=== PATIENT | female | born 1985 | race Caucasian/White ===

== ENCOUNTER 2016-12-21 05:15 | Inpatient (IN) | payer BC ==
[2016-12-21] MEDS ORDERED: Sodium Chloride 0.9% 2.5 ML Syringe FLUSH PRN (05:24)
[2016-12-21] MEDS ORDERED: Sodium Chloride 0.9% 10 ML Syringe FLUSH PRN (05:24)
[2016-12-21] MEDS ORDERED: Lactated Ringers 1,000 ML IV SCH ×2 (05:30→09:30)
[2016-12-21] MEDS ORDERED: Citric Acid/Sodium Citrate Solution 30 ML Cup PO SCH (05:30)
[2016-12-21] MEDS ORDERED: Morphine PF 10 MG/10 ML SDV ONE (07:22)
[2016-12-21] MEDS ORDERED: Phenylephrine 1% 10 MG/ML SDV ONE (07:22)
[2016-12-21] MEDS ORDERED: Ondansetron 4 MG/2 ML SDV ONE (07:22)
--- NOTE | 2016-12-21 07:44 | PCM.PREANE ---
Preanesthetic Assessment - Anesthesia/Transfusion/Family Hx Anesthesia History: Prior Anesthesia Without Reaction (prior with epidural) Family History of Anesthesia Reaction: No Transfusion History: No Prior Transfusion(s) - Review of Systems General: No Symptoms Pulmonary: No Symptoms Cardiovascular: No Symptoms Gastrointestinal: No symptoms Neurological: No Symptoms Other: Reports: None (G4, P2, expecting identical twin boys, 36 week gest. PMH neg, NKDA) - Physical Assessment Height: 1.65 m Weight: 107.501 kg ASA Class: 2 Mental Status: Alert & Oriented x3 Airway Class: Mallampati = 2 Dentition: Reports: Normal Dentition ROM/Head Extension: Full Lungs: Clear to auscultation, Normal respiratory effort Cardiovascular: Regular Rate, Regular Rhythm - Lab Values: Laboratory Last Values WBC 7.74 K/uL (4.0-11.0) 12/21/16 05:38 RBC 4.25 M/uL (4.30-5.90) L 12/21/16 05:38 Hgb 12.3 g/dL (12.0-16.0) 12/21/16 05:38 Hct 36.9 % (36.0-46.0) 12/21/16 05:38 MCV 86.8 fL (80.0-98.0) 12/21/16 05:38 MCH 28.9 pg (27.0-32.0) 12/21/16 05:38 MCHC 33.3 g/dL (31.0-37.0) 12/21/16 05:38 RDW Std Deviation 42.1 fl (28.0-62.0) 12/21/16 05:38 RDW Coeff of Brandie 13 % (11.0-15.0) 12/21/16 05:38 Plt Count 145 K/uL (150-400) L 12/21/16 05:38 MPV 12.30 fL (7.40-12.00) H 12/21/16 05:38 Nucleated RBC % 0.0 /100WBC 12/21/16 05:38 Nucleated RBCs # 0 K/uL 12/21/16 05:38 Blood Type O POSITIVE 12/21/16 05:38 Antibody Screen NEGATIVE 12/21/16 05:38 - Allergies Allergies/Adverse Reactions: Allergies Allergy/AdvReac Type Severity Reaction Status Date / Time bee stings Allergy Rash Uncoded 12/19/16 08:54 - Blood Blood Available: Yes Product(s) Available: PRBC - Anesthesia Plan Pre-Op Medication Ordered: Antacids - Acknowledgements Anesthesia Type Planned: Spinal Pt an Appropriate Candidate for the Planned Anesthesia: Yes Alternatives and Risks of Anesthesia Discussed w Pt/Guardian: Yes Pt/Guardian Understands and Agrees with Anesthesia Plan: Yes PreAnesthesia Questionnaire HEENT History: Reports: None Cardiovascular History: Reports: None Respiratory History: Reports: None Gastrointestinal History: Reports: None Genitourinary History: Reports: None SLP History: Reports: Ectopic , Polycystic Ovaries, Musculoskeletal History: Reports: None Neurological History: Reports: None Psychiatric History: Reports: None Endocrine/Metabolic History: Reports: None Hematologic History: Reports: None Immunologic History: Reports: None Oncologic (Cancer) History: Reports: None Dermatologic History: Reports: None - Infectious Disease History Infectious Disease History: Reports: None - Past Surgical History Head Surgeries/Procedures: Reports: None HEENT Surgical History: Reports: Adenoidectomy Respiratory Surgical History: Reports: None GI Surgical History: Reports: None Female Surgical History: Reports: Breast reconstruction, Breast reduction, section, Cystectomy Other Female Surgeries/Procedures: hx breast reduction, 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 followed by breast reconstruction, laparoscopy for ovarian cystectomy, laparoscopy with salpingectomy for ectopic , - SUBSTANCE USE Smoking Status *Q: Former Smoker Second Hand Smoke Exposure: No Days Per Week of Alcohol Use: 0 Recreational Drug Use History: No - HOME MEDS Home Medications: Home Meds Vit W-Ca,Fe,FA(<1 mg) [ Vitamins] 1 tab PO DAILY 12/19/16 [ History] - CURRENT (IN HOUSE) MEDS Current Meds: Current Medications Citric Acid/Sodium Citrate (Bicitra Solution) 30 ml PO .ONCE PARUL Last Admin: 12/21/16 06:56 Dose: 30 ml Lactated Ringer's (Ringers, Lactated) 1,000 mls @ 500 mls/hr IV .BOLUS PARUL Last Admin: 12/21/16 05:41 Dose: 500 mls/hr Sodium Chloride (Saline Flush) 10 ml FLUSH ASDIRECTED PRN PRN Reason: Keep Vein Open Sodium Chloride (Saline Flush) 2.5 ml FLUSH ASDIRECTED PRN PRN Reason: Keep Vein Open Discontinued Medications Morphine Sulfate (Duramorph Pf) Confirm Administered Dose 10 mg .ROUTE .STK-MED ONE Stop: 12/21/16 07:23 Ondansetron HCl (Zofran) Confirm Administered Dose 4 mg .ROUTE .STK-MED ONE Stop: 12/21/16 07:23 Phenylephrine HCl (Felipe-Synephrine) Confirm Administered Dose 10 mg .ROUTE .STK- MED ONE Stop: 12/21/16 07:23 Preanesthetic Assessment - ANESTHESIA/TRANSFUSION/FAMILY HX Anesthesia/Transfusion History: No Prior Transfusion(s), Prior Anesthesia Family History of Anesthesia Reaction: No - PHYSICAL ASSESSMENT Height: 1.65 m Weight: 107.501 kg - LAB Values: Laboratory Last Values WBC 7.74 K/uL (4.0-11.0) 12/21/16 05:38 RBC 4.25 M/uL (4.30-5.90) L 12/21/16 05:38 Hgb 12.3 g/dL (12.0-16.0) 12/21/16 05:38 Hct 36.9 % (36.0-46.0) 12/21/16 05:38 MCV 86.8 fL (80.0-98.0) 12/21/16 05:38 MCH 28.9 pg (27.0-32.0) 12/21/16 05:38 MCHC 33.3 g/dL (31.0-37.0) 12/21/16 05:38 RDW Std Deviation 42.1 fl (28.0-62.0) 12/21/16 05:38 RDW Coeff of Brandie 13 % (11.0-15.0) 12/21/16 05:38 Plt Count 145 K/uL (150-400) L 12/21/16 05:38 MPV 12.30 fL (7.40-12.00) H 12/21/16 05:38 Nucleated RBC % 0.0 /100WBC 12/21/16 05:38 Nucleated RBCs # 0 K/uL 12/21/16 05:38 Blood Type O POSITIVE 12/21/16 05:38 Antibody Screen NEGATIVE 12/21/16 05:38 - ALLERGIES Allergies/Adverse Reactions: Allergies Allergy/AdvReac Type Severity Reaction Status Date / Time bee stings Allergy Rash Uncoded 12/19/16 08:54
[2016-12-21] MEDS ORDERED: ceFAZolin 2 GM in Premix Bag 1 BAG IV ONE (07:45)
[2016-12-21] MEDS ORDERED: Oxytocin 10 Units/1 ML SDV ONE (07:52)
[2016-12-21] MEDS ORDERED: Nalbuphine 10 MG/1 ML Vial IVPUSH PRN (08:37)
[2016-12-21] MEDS ORDERED: Naloxone 0.4 MG/ML Syringe IVPUSH PRN (08:37)
[2016-12-21] MEDS ORDERED: fentaNYL 100 MCG/2 ML SDV IVPUSH PRN (08:37)
[2016-12-21] MEDS ORDERED: diphenhydrAMINE 50 MG/ML SDV IVPUSH PRN (09:21)
[2016-12-21] MEDS ORDERED: Ondansetron 4 MG/2 ML SDV IV PRN (09:21)
[2016-12-21] MEDS ORDERED: Bisacodyl 10 MG Supp RECTAL PRN (09:21)
[2016-12-21] MEDS ORDERED: Lanolin 100% Cream 7 GM Tube TOP PRN (09:21)
[2016-12-21] MEDS ORDERED: Acetaminophen/oxyCODONE 325-5 MG Tab PO PRN (09:21)
[2016-12-21] MEDS: Ketorolac 30 MG/ML SDV IVPUSH SCH ×3 (09:38→21:04)
--- NOTE | 2016-12-21 09:57 | PCM.POSTAN ---
POST ANESTHESIA ASSESSMENT - MENTAL STATUS Mental Status: alert, oriented - RESPIRATORY Respiratory Status: respiratory rate WNL, airway patent, O2 saturation stable - CARDIOVASCULAR CV Status: pulse rate WNL, blood pressure stable - GASTROINTESTINAL GI Status: no symptoms - PAIN Pain Score: 0 - POST OP HYDRATION Hydration Status: adequate & stable
--- NOTE | 2016-12-21 21:00 | PCM.OPNOTE ---
- General Post-Op/Procedure Note Date of Surgery/Procedure: 12/21/16 Operative Procedure(s): Repeat low transverse section Findings: VMI infants x 2, Baby A double footling breech with APGARS of 8&9 and wt of 2675g, Baby B vtx with APGARS of 8&9 and wt of 2590g. Normal mono di placenta. Normal uterus, and ovaries. Pre Op Diagnosis: Twin IUP @ 36+1. [place]/Di twins Post-Op Diagnosis: Same. Delivered Anesthesia Technique: Spinal Primary Surgeon: Christen Garcias Pathology: Placenta Fluid Replacement, Intraop: 2,000 Output, Urine Amount: 100 EBL in mLs: 600 Complications: None known Condition: Good Free Text/Narrative:: Intake & Output 12/21/16 12/21/16 12/21/16 06:59 14:59 22:59 Intake Total 2800 3225 Output Total 290 700 Balance 2510 2525 JobID#[id number]
[2016-12-21] MEDS: Docusate Sodium 100 MG Cap PO SCH (21:04)
[2016-12-22] MEDS: Ketorolac 30 MG/ML SDV IVPUSH SCH ×2 (03:02→09:34)
[2016-12-22] MEDS: Acetaminophen/oxyCODONE 325-5 MG Tab PO PRN ×3 (07:56→21:38)
[2016-12-22] MEDS: Docusate Sodium 100 MG Cap PO SCH ×2 (09:32→21:38)
--- NOTE | 2016-12-22 13:07 | PCM.PNPP ---
- General Info Date of Service: 12/22/16 Functional Status: Reports: pain controlled, tolerating diet, ambulating, urinating - Review of Systems General: Reports: No Symptoms HEENT: Reports: no symptoms Pulmonary: Reports: no symptoms Cardiovascular: Reports: No Symptoms Gastrointestinal: Reports: No symptoms, Flatus Genitourinary: Reports: no symptoms Musculoskeletal: Reports: no symptoms Skin: Reports: no symptoms Neurological: Reports: No Symptoms Psychiatric: Reports: no symptoms - General Info Date of Service: 12/22/16 - Patient Data Vital Signs - most recent: Last Vital Signs Temp 36.7 C 12/22/16 12:04 Pulse 87 12/22/16 12:04 Resp 17 12/22/16 12:04 BP 112/57 L 12/22/16 12:04 Pulse Ox 96 12/22/16 12:04 Weight - most recent: 107.501 kg I&O - last 24 hours: Intake & Output 12/21/16 12/22/16 12/22/16 22:59 06:59 14:59 Intake Total 3225 650 Output Total 700 1975 925 Balance 2525 -1325 -925 Lab Results - last 24 hrs: Laboratory Results - last 24 hr 12/22/16 Range/Units 05:58 Hgb 11.0 L (12.0-16.0) g/dL Hct 32.8 L (36.0-46.0) % Med Orders - Current: Current Medications Bisacodyl (Dulcolax) 10 mg RECTAL .ONCE PRN PRN Reason: Constipation Citric Acid/Sodium Citrate (Bicitra Solution) 30 ml PO .ONCE PARUL Last Admin: 12/21/16 06:56 Dose: 30 ml Diphenhydramine HCl (Benadryl) 25 mg IVPUSH Q6H PRN PRN Reason: Itching or Nausea Docusate Sodium (Colace) 100 mg PO BID PARUL Last Admin: 12/22/16 09:32 Dose: 100 mg Emollient Ointment (Lansinoh Hpa) 0 gm TOP ASDIRECTED PRN PRN Reason: Sore Nipples Lactated Ringer's (Ringers, Lactated) 1,000 mls @ 500 mls/hr IV .BOLUS PARUL Last Admin: 12/21/16 05:41 Dose: 500 mls/hr Lactated Ringer's (Ringers, Lactated) 1,000 mls @ 125 mls/hr IV ASDIRECTED [facility] Last Admin: 12/21/16 11:00 Dose: 125 mls/hr Ibuprofen (Motrin) 800 mg PO Q8H PRN PRN Reason: mild pain or fever Ondansetron HCl (Zofran) 4 mg IV Q4H PRN PRN Reason: Nausea/Vomiting Oxycodone/Acetaminophen (Percocet 325-5 Mg) 2 tab PO ONETIME PRN PRN Reason: Pain (moderate 4-6) Oxycodone/Acetaminophen (Percocet 325-5 Mg) 1 tab PO Q4H PRN PRN Reason: Pain (moderate 4-6) Oxycodone/Acetaminophen (Percocet 325-5 Mg) 2 tab PO Q4H PRN PRN Reason: Pain (moderate 4-6) Last Admin: 12/22/16 12:00 Dose: 2 tab Sodium Chloride (Saline Flush) 10 ml FLUSH ASDIRECTED PRN PRN Reason: Keep Vein Open Sodium Chloride (Saline Flush) 2.5 ml FLUSH ASDIRECTED PRN PRN Reason: Keep Vein Open Discontinued Medications Fentanyl (Sublimaze) 50 mcg IVPUSH Q5M PRN PRN Reason: Pain (severe 7-10) Stop: 12/22/16 08:37 Cefazolin Sodium/Dextrose 2 gm (/ Premix) 50 mls @ 100 mls/hr IV ONETIME ONE Stop: 12/21/16 08:14 Ketorolac Tromethamine (Toradol) 30 mg IVPUSH Q6H [facility] Stop: 12/22/16 09:31 Last Admin: 12/22/16 09:34 Dose: 30 mg Morphine Sulfate (Duramorph Pf) Confirm Administered Dose 10 mg .ROUTE .STK-MED ONE Stop: 12/21/16 07:23 Nalbuphine HCl (Nubain) 2.5 mg IVPUSH Q3H PRN PRN Reason: Pruritis Stop: 12/22/16 08:37 Naloxone HCl (Narcan) 0.1 mg IVPUSH ONETIME PRN PRN Reason: Oversedation Stop: 12/22/16 08:38 Ondansetron HCl (Zofran) Confirm Administered Dose 4 mg .ROUTE .STK-MED ONE Stop: 12/21/16 07:23 Oxytocin (Pitocin) Confirm Administered Dose 20 unit .ROUTE .STK-MED ONE Stop: 12/21/16 07:53 Phenylephrine HCl (Felipe-Synephrine) Confirm Administered Dose 10 mg .ROUTE .STK- MED ONE Stop: 12/21/16 07:23 - Interaction Disposition, : in Room with Family Interaction: Holding Infant Feeding: Bottle Fed Infant Support Person: - Recovery Exam Fundal Tone: Firm Fundal Level: At Umbilicus Fundal Placement: Midline Lochia Amount: Scant Lochia Color: Rubra/Red Perineum Description: Intact, Minimal Bruising/Swelling Episiotomy/Laceration: None Bladder Status: Voiding Urinary Elimination: Indwelling Catheter - Exam General: alert, oriented Neck: supple Lungs: Clear to auscultation, Normal respiratory effort Cardiovascular: Regular Rate, Regular Rhythm Abdomen: bowel sounds present, soft Extremities: no calf tenderness Skin: warm, dry, intact Wound/Incisions: dressing dry and intact Neurological: no new focal deficit Psy/Mental Status: alert, normal affect, normal mood - Problem List & Annotations (1) Previous section SNOMED Code(s): 583117383 Code(s): Z98.891 - HISTORY OF UTERINE SCAR FROM PREVIOUS SURGERY Status: Acute Current Visit: Yes (2) Delivery by section for footling breech presentation SNOMED Code(s): 598498427 Code(s): O32.8XX0 - MATERNAL CARE FOR OTH MALPRESENTATION OF FETUS, UNSP Status: Acute Current Visit: Yes - Problem List Review Problem List Initiated/Reviewed/Updated: Yes - My Orders Last 24 Hours: My Active Orders 12/21/16 21:00 Docusate Sodium [Colace] 100 mg PO BID - Assessment Assessment:: PPD#1 S/p RLTCS for mono/di twins, first twin double footling breech Doing well OOB voiding and ambulating without difficulty - Plan Plan:: Patient may shower Increase ambulation Routine postop/ care
--- NOTE | 2016-12-22 13:27 | PCM48HPAN ---
Post Anesthesia Note - EVALUATION WITHIN 48HRS OF ANESTHETIC Vital Signs in Normal Range: Yes Patient Participated in Evaluation: Yes Respiratory Function Stable: Yes Airway Patent: Yes Cardiovascular Function Stable: Yes Hydration Status Stable: Yes Pain Control Satisfactory: Yes Nausea and Vomiting Control Satisfactory: Yes Mental Status Recovered: Yes
[2016-12-22] MEDS: Ibuprofen 800 MG Tab PO PRN (16:00)
[2016-12-23] MEDS: Acetaminophen/oxyCODONE 325-5 MG Tab PO PRN ×2 (03:16→07:33)
[2016-12-23] MEDS: Ibuprofen 800 MG Tab PO PRN (06:33)
[2016-12-23 09:33] VITALS: BP 124/58
--- NOTE | 2016-12-23 09:55 | PCM.PNPP ---
- General Info Date of Service: 12/23/16 Functional Status: Reports: pain controlled (with meds), tolerating diet, ambulating - Review of Systems General: Reports: No Symptoms HEENT: Reports: no symptoms Pulmonary: Reports: no symptoms Cardiovascular: Reports: No Symptoms Gastrointestinal: Reports: No symptoms, Flatus Genitourinary: Reports: no symptoms Musculoskeletal: Reports: no symptoms Skin: Reports: no symptoms Neurological: Reports: No Symptoms Psychiatric: Reports: no symptoms - General Info Date of Service: 12/23/16 - Patient Data Vital Signs - most recent: Last Vital Signs Temp 36.6 C 12/23/16 08:00 Pulse 87 12/23/16 08:00 Resp 18 12/23/16 08:00 BP 124/58 L 12/23/16 08:00 Pulse Ox 97 12/23/16 08:00 Weight - most recent: 107.501 kg Med Orders - Current: Current Medications Bisacodyl (Dulcolax) 10 mg RECTAL .ONCE PRN PRN Reason: Constipation Citric Acid/Sodium Citrate (Bicitra Solution) 30 ml PO .ONCE [facility] Last Admin: 12/21/16 06:56 Dose: 30 ml Diphenhydramine HCl (Benadryl) 25 mg IVPUSH Q6H PRN PRN Reason: Itching or Nausea Docusate Sodium (Colace) 100 mg PO BID [facility] Last Admin: 12/22/16 21:38 Dose: 100 mg Emollient Ointment (Lansinoh Hpa) 0 gm TOP ASDIRECTED PRN PRN Reason: Sore Nipples Lactated Ringer's (Ringers, Lactated) 1,000 mls @ 500 mls/hr IV .BOLUS [facility] Last Admin: 12/21/16 05:41 Dose: 500 mls/hr Lactated Ringer's (Ringers, Lactated) 1,000 mls @ 125 mls/hr IV ASDIRECTED [facility] Last Admin: 12/21/16 11:00 Dose: 125 mls/hr Ibuprofen (Motrin) 800 mg PO Q8H PRN PRN Reason: mild pain or fever Last Admin: 12/23/16 06:33 Dose: 800 mg Ondansetron HCl (Zofran) 4 mg IV Q4H PRN PRN Reason: Nausea/Vomiting Oxycodone/Acetaminophen (Percocet 325-5 Mg) 2 tab PO ONETIME PRN PRN Reason: Pain (moderate 4-6) Last Admin: 12/23/16 03:16 Dose: 2 tab Oxycodone/Acetaminophen (Percocet 325-5 Mg) 1 tab PO Q4H PRN PRN Reason: Pain (moderate 4-6) Last Admin: 12/22/16 16:02 Dose: 1 tab Oxycodone/Acetaminophen (Percocet 325-5 Mg) 2 tab PO Q4H PRN PRN Reason: Pain (moderate 4-6) Last Admin: 12/23/16 07:33 Dose: 2 tab Sodium Chloride (Saline Flush) 10 ml FLUSH ASDIRECTED PRN PRN Reason: Keep Vein Open Sodium Chloride (Saline Flush) 2.5 ml FLUSH ASDIRECTED PRN PRN Reason: Keep Vein Open Discontinued Medications Fentanyl (Sublimaze) 50 mcg IVPUSH Q5M PRN PRN Reason: Pain (severe 7-10) Stop: 12/22/16 08:37 Cefazolin Sodium/Dextrose 2 gm (/ Premix) 50 mls @ 100 mls/hr IV ONETIME ONE Stop: 12/21/16 08:14 Ketorolac Tromethamine (Toradol) 30 mg IVPUSH Q6H PARUL Stop: 12/22/16 09:31 Last Admin: 12/22/16 09:34 Dose: 30 mg Morphine Sulfate (Duramorph Pf) Confirm Administered Dose 10 mg .ROUTE .STK-MED ONE Stop: 12/21/16 07:23 Nalbuphine HCl (Nubain) 2.5 mg IVPUSH Q3H PRN PRN Reason: Pruritis Stop: 12/22/16 08:37 Naloxone HCl (Narcan) 0.1 mg IVPUSH ONETIME PRN PRN Reason: Oversedation Stop: 12/22/16 08:38 Ondansetron HCl (Zofran) Confirm Administered Dose 4 mg .ROUTE .STK-MED ONE Stop: 12/21/16 07:23 Oxytocin (Pitocin) Confirm Administered Dose 20 unit .ROUTE .STK-MED ONE Stop: 12/21/16 07:53 Phenylephrine HCl (Felipe-Synephrine) Confirm Administered Dose 10 mg .ROUTE .STK- MED ONE Stop: 12/21/16 07:23 - Infant Interaction Disposition, : [place] in Room with Family Infant Interaction: Holding Feeding: Bottle Fed Support Person: - Recovery Exam Fundal Tone: Firm Fundal Level: 1 Fingerbreadths Below Umbilicus Fundal Placement: Midline Lochia Amount: Scant Lochia Color: Rubra/Red Perineum Description: Intact, Minimal Bruising/Swelling Episiotomy/Laceration: None Bladder Status: Voiding Urinary Elimination: Voided - Exam General: alert, oriented Neck: supple Lungs: Clear to auscultation, Normal respiratory effort Cardiovascular: Regular Rate, Regular Rhythm Abdomen: bowel sounds present, soft Extremities: no calf tenderness Skin: warm, dry, intact Wound/Incisions: healing well Neurological: no new focal deficit Psy/Mental Status: alert, normal affect, normal mood - Problem List & Annotations (1) Previous section SNOMED Code(s): 521050625 Code(s): Z98.891 - HISTORY OF UTERINE SCAR FROM PREVIOUS SURGERY Status: Acute Current Visit: Yes (2) Delivery by section for footling breech presentation SNOMED Code(s): 486613010 Code(s): O32.8XX0 - MATERNAL CARE FOR OTH MALPRESENTATION OF FETUS, UNSP Status: Acute Current Visit: Yes - Problem List Review Problem List Initiated/Reviewed/Updated: Yes - My Orders Last 24 Hours: My Active Orders 12/23/16 10:30 Ready for Discharge [RC] PER UNIT ROUTINE - Assessment Assessment:: PPD#2 S/p RLTCS for mono/di twins, first twin double footling breech Doing well OOB voiding and ambulating without difficulty Desires discharge home today - Plan Plan:: Pelvic rest for 6wks Incision precautions given Bleeding precautions given Infection precautions given Thrombotic precautions given blues/depression precautions given
--- NOTE | 2016-12-31 07:53 | OR ---
SURGEON: Christen Garcias DATE OF PROCEDURE: 12/21/2016 BRIEF PREOPERATIVE HISTORY: This is a 31-year-old, G4, P2, who presented via scheduled for mono di twins at 36 weeks and 1 day. The patient had a history of a previous and elected not to have a trial of labor after section. The patient was apprised of risks of being bleeding, infection, poor wound healing, possible damage to bowel or bladder, ureters, nerves, blood vessels, or any other adjacent structures in the pelvis. The patient was also apprised of the fact risk of anesthesia and risk of thromboembolic disease. Knowing all of the above appropriate consents were signed. PREOPERATIVE DIAGNOSES: 1. Intrauterine at 36 weeks and 1 day. 2. [place] di twins. 3. No evidence of twin-twin transfusion syndrome and concordant growth. POSTOPERATIVE DIAGNOSES: 1. Intrauterine at 36 weeks and 1 day. 2. [place] di twins. 3. No evidence of twin-twin transfusion syndrome and concordant growth. 4. Delivered status. PROCEDURE PERFORMED: Repeat low transverse section. ANESTHESIA: Spinal. ESTIMATED BLOOD LOSS: 600 mL. IV FLUIDS: 2000 mL of crystalloid. URINE OUTPUT: 100 mL of clear urine at the end of procedure. FINDINGS: Viable male infant x2. Baby A was double footling breech with score of 8 and 9 at 1 and 5 minutes respectively and weight of 2675 g. Baby B was vertex with score of 8 and 9 and weight of 2570 g. Normal mono di placenta. Normal uterus and ovaries and remaining tube. PATHOLOGY: Placenta. COMPLICATIONS: None known. CONDITION: Post delivery was good. DESCRIPTION OF PROCEDURE: The patient was taken to the operating room, where the patient had Venodynes in place and active prior to placement of spinal anesthesia. After placement of spinal anesthesia, the patient was quickly laid down, and Yates catheter was placed, and the patient was clipped. The patient's abdomen was then prepped after a left lateral tilt. After prepping the patient's abdomen sterilely, the patient was draped in the normal sterile fashion. Prior to surgery, time-out was held to ensure the appropriate patient, appropriate position, appropriate procedure, and also the fact the patient received 2 g of IV Ancef prior to the start of procedure. Attention then was turned to the patient's abdomen, where skin test was completed and the patient was appropriately anesthetized. The patient's previous Pfannenstiel incision was visualized and the prior incision was over an underscored and the prior incision scar was removed. Afterwards, the incision was dissected down with the Bovie to the fascia. The fascia was incised in the midline and extended laterally with the Bovie. The superior aspect of the fascial incision was grasped with the Elda clamps, tented up, and the rectus muscles dissected off bluntly then sharply with the Bovie. Attention then was turned to the inferior aspect of the same incision which in a similar fashion was tented up with the Elda clamps, and the rectus muscles dissected off bluntly then sharply with the Bovie. The patient had a normal diastasis recti and the median raphe was gently dissected with the Bovie mostly superiorly. After scoring the median raphe, the median raphe was dissected up superiorly and then inferiorly and then with lateral blunt stretching the peritoneal access was increased. The self-retaining Foster retractor was placed in the patient's abdomen and set. The vesicouterine peritoneum was identified and entered sharply with the Metzenbaum scissors. The bladder flap was created digitally. A new scalpel blade was used to make the hysterotomy incision in a transverse fashion. The hysterotomy incision was extended in the anterior-posterior fashion to prevent excess lateral shearing out to the uterine vessels. The membranes were seen ballooning through the hysterotomy incision. Membranes were ruptured for clear fluid of baby A. Baby A's feet were grasped and brought through the hysterotomy incision followed by the body. The arms were swept across the chest and the head was flexed and the vertex was brought through the hysterotomy incision as the last part of the body. was bulb suctioned at delivery and had a vigorous cry. The cord was doubly clamped and cut and baby A was handed off to the waiting automatic i threading machine feeder. Baby A's cord was tagged with 1 cord clamp. The second membrane sac of baby B was identified. Membranes ruptured for clear fluid and baby B's vertex was brought through the hysterotomy incision followed by the body. was bulb suctioned at delivery. Cord was doubly clamped and cut. was handed off to the waiting automatic i threading machine feeder. Baby B's cord was identified with 2 cord clamps. Cord blood was collected and sent for analysis. IV Pitocin was given as an uterotonic to prevent excessive maternal blood loss at the time of surgery. The placenta was removed manually and the uterus was cleared of all clots and debris. The placenta was sent to pathology for analysis. After clearing out the uterus and dilating the cervix with ring forceps, the first layer of the uterine incision was repaired with 0 Vicryl suture in a running, locked fashion. The second layer was closed with an imbricating fashion with 0 Vicryl suture on a CTX needle. Hemostasis was noted to be good at this point. Stray bleeders from the bladder flap were made hemostatic with the Bovie. The ovaries were inspected bilaterally and noted to be normal. Hysterotomy incision was noted to be hemostatic. The peritoneum and rectus muscles were closed with 0 Vicryl suture in a running mattress suture. The fascia was closed with 0 Vicryl suture in a running fashion. The adipose tissue was reapproximated with 3-0 plain gut suture. The skin was closed with 3-0 Prolene suture on a Yinka needle. The remainder of the suture was tied and affixed to the patient's anterior abdomen. Mastisol and Steri-Strips were placed. A pressure dressing and Telfa were placed. The patient was eventually moved to her recovery bed and taken to PACU in awake and stable condition. The patient and tolerated the procedure well. Sponge, lap, needle, and instrument counts were correct. The patient received 2 g IV Ancef prior to start of procedure. ROBERT / PORSHA /[id number] ALMAS
== END 2016-12-23 11:15 | disposition home or self-care (01) | DRG 540 ==
LOC: MW.OB 05:15
PROVIDERS: ADMIT Obstetrics & Gynecology; ATTEND Obstetrics & Gynecology
PROC: 10D00Z1 Extraction of Products of Conception, Low, Open Approach (ICD-10-PCS; principal; 2016-12-21)
DX: O32.8XX1 Maternal care for other malpresentation of fetus, fetus 1 (principal); O30.033 Twin pregnancy, monochorionic/diamniotic, third trimester; Z3A.36 36 weeks gestation of pregnancy; Z37.2 Twins, both liveborn
CPT/HCPCS: 01961; 36415; 59025; 85014; 85018; 85027; 86850; 86900; 86901; 88307; A9270-GY; J1885; J2270; J2370; J2405; J2590; J7120

== ENCOUNTER → 2017-02-06 | Outpatient (CLI) | payer BC | LOC: MW.CHOBGYN 11:36 | PROVIDERS: ATTEND Nurse Practitioner Women's Health | DX: N92.0 Excessive and frequent menstruation with regular cycle (principal) | CPT/HCPCS: 87491; 87591 ==

== ENCOUNTER → 2017-02-22 | Outpatient (CLI) | payer BC | LOC: MW.CHOBGYN 10:22 | PROVIDERS: ATTEND Nurse Practitioner Women's Health | DX: N94.6 Dysmenorrhea, unspecified (principal) | CPT/HCPCS: 81025 ==

== ENCOUNTER 2019-05-25 08:04 | Emergency (ER) | payer BC, OTHER ==
[2019-05-25] MEDS ORDERED: Ondansetron 4 MG/2 ML SDV IVPUSH ONE (08:07)
[2019-05-25] MEDS ORDERED: Sodium Chloride 0.9% 1,000 ML IV ONE ×2 (08:07→08:59)
--- NOTE | 2019-05-25 08:11 | EDM.PDOC ---
ED HPI GENERAL MEDICAL PROBLEM - General Chief Complaint: Gastrointestinal Problem Stated Complaint: DEHYDRATION Time Seen by Provider: 05/25/19 08:11 Source of Information: Reports: Patient History Limitations: Reports: No Limitations - History of Present Illness INITIAL COMMENTS - FREE TEXT/NARRATIVE: HISTORY AND PHYSICAL: History of present illness: Patient is a 33-year-old female who presents to the emergency room with complaints of nausea vomiting and generally feeling unwell. Patient had a gastric bypass surgery approximately one month ago in [facility]. She states immediately after she had felt well and did see her surgeon approximately 2 weeks ago for follow-up. Over the past one week she states she has felt nauseated and decreased the desire to drink fluids. Has had intermittent vomiting. Concerned she may be dehydrated. Denies any change in her dietary intake, has not introduced any new foods or quantities. She does have an appointment tomorrow with her surgeon, scheduled routine follow-up. Patient denies any fever, chills, headache, change in vision, syncope or near syncope. Denies any chest pain, back pain, shortness of breath or cough. Denies any abdominal pain, diarrhea, constipation or dysuria. Has not noted any blood in urine or stool. Patient has been eating and drinking appropriately. Review of systems: As per history of present illness and below otherwise all systems reviewed and negative. Past medical history: As per history of present illness and as reviewed below otherwise noncontributory. Surgical history: As per history of present illness and as reviewed below otherwise noncontributory. Social history: See social history for further information Family history: As per history of present illness and as reviewed below otherwise noncontributory. Physical exam: General: Well-developed and well-nourished 33-year-old female. Alert and oriented. Nontoxic appearing and in no acute distress. HEENT: Atraumatic, normocephalic, pupils equal and reactive bilaterally, negative for conjunctival pallor or scleral icterus, mucous membranes moist, TMs normal bilaterally, throat clear, neck supple, nontender, trachea midline. No drooling or trismus noted. No meningeal signs. No hot potato voice noted. Lungs: Clear to auscultation, breath sounds equal bilaterally, chest nontender. Heart: S1S2, regular rate and rhythm without overt murmur Abdomen: Soft, nondistended, nontender. Negative for masses or hepatosplenomegaly. Negative for costovertebral tenderness. Pelvis: Stable nontender. Genitourinary: Deferred. Rectal: Deferred. Skin: Intact, warm, dry. No lesions or rashes noted. Extremities: Atraumatic, moves all extremities per self without difficulty or deficits, negative for cords or calf pain. Neurovascular unremarkable. Neuro: Awake, alert, oriented. Cranial nerves II through XII unremarkable. Cerebellum unremarkable. Motor and sensory unremarkable throughout. Exam nonfocal. Notes: Patient's physical examination is within normal limits. Other than the patient having concerns of nausea and vomiting she states she otherwise feels well. We discussed the need for continuing with her follow-up appointment with her surgeon tomorrow as they do do in depth testing uncertain vitamin deficiencies, etc... Patient states she does feel improved after the IV fluids and Zofran. Denies any nausea/vomiting at this time. We did discuss her lab work, including bilirubin. She denies any abdominal pain. Encouraged her to keep her appointment as she has arranged tomorrow. Supportive care measures were reviewed and discussed. Voices understanding and is agreeable to plan of care. Denies any further questions or concerns at this time. Diagnostics: CBC, CMP, UA Therapeutics: IV fluid, Zofran Prescription: Zofran No. 10 Impression: Nausea and vomiting History of gastric bypass surgery Plan: 1. Continue with your dietary routine and try for small frequent sips of fluids to prevent dehydration. Use the zofran as needed. 2. Follow up with the specialist tomorrow as you already have arranged. 3. Return to the ED as needed and as discussed. Definitive disposition and diagnosis as appropriate pending reevaluation and review of above. - Related Data Allergies Allergy/AdvReac Type Severity Reaction Status Date / Time bee stings Allergy Rash Uncoded 05/25/19 08:11 Home Meds: Home Meds B12/Levomefolate Calcium/B-6 [Folbic Rf Tablet] 1 tab PO DAILY 05/25/19 [History ] Calcium Carbonate [Calcium] 1 tab PO DAILY 05/25/19 [History] Iron 1 tab PO DAILY 05/25/19 [History] Multivitamin [Multivitamins] 1 tab PO DAILY 05/25/19 [History] Ondansetron [Zofran ODT] 4 mg PO Q6H PRN #10 tab.dis 05/25/19 [Rx] Past Medical History HEENT History: Reports: None Cardiovascular History: Reports: None Respiratory History: Reports: None Gastrointestinal History: Reports: None Genitourinary History: Reports: None MINE BOSS History: Reports: Ectopic , Polycystic Ovaries, Musculoskeletal History: Reports: None Neurological History: Reports: None Psychiatric History: Reports: None Endocrine/Metabolic History: Reports: None Hematologic History: Reports: None Immunologic History: Reports: None Oncologic (Cancer) History: Reports: None Dermatologic History: Reports: None - Infectious Disease History Infectious Disease History: Reports: None - Past Surgical History Female Surgical History: Reports: Breast Reconstruction, Breast Reduction, Section, Cystectomy Social & Family History - Family History Family Medical History: Noncontributory ED ROS GENERAL - Review of Systems Review Of Systems: ROS reveals no pertinent complaints other than HPI. ED EXAM, GI/ABD - Physical Exam Exam: See Below (See dictation) Course - Vital Signs Last Recorded V/S: Last Vital Signs Temp 95.5 F 05/25/19 08:09 Pulse 86 05/25/19 08:09 Resp 18 05/25/19 08:09 BP 130/87 05/25/19 08:09 Pulse Ox 98 05/25/19 08:09 Orthostatic Blood Pressure [ 110/65 Standing] Orthostatic Blood Pressure [ 112/73 Sitting] Orthostatic Blood Pressure [ 102/51 Supine] - Orders/Labs/Meds Orders: Active Orders 24 hr Category Date Time Status Orthostatic Vital Signs [RC] ASDIRECTED Care 05/25/19 08:59 Active Labs: Laboratory Tests 05/25/19 05/25/19 05/25/19 Range/Units 08:07 08:07 08:16 WBC 7.04 (4.0-11.0) K/uL RBC 4.97 (4.30-5.90) M/uL Hgb 15.3 (12.0-16.0) g/dL Hct 43.5 (36.0-46.0) % MCV 87.5 (80.0-98.0) fL MCH 30.8 (27.0-32.0) pg MCHC 35.2 (31.0-37.0) g/dL RDW Std Deviation 43.9 (28.0-62.0) fl RDW Coeff of Brandie 14 (11.0-15.0) % Plt Count 163 (150-400) K/uL MPV 11.80 (7.40-12.00) fL Neut % (Auto) 50.8 (48.0-80.0) % Lymph % (Auto) 37.4 (16.0-40.0) % Colbert % (Auto) 9.1 (0.0-15.0) % Eos % (Auto) 2.0 (0.0-7.0) % Baso % (Auto) 0.7 (0.0-1.5) % Neut # (Auto) 3.6 (1.4-5.7) K/uL Lymph # (Auto) 2.6 H (0.6-2.4) K/uL Colbert # (Auto) 0.6 (0.0-0.8) K/uL Eos # (Auto) 0.1 (0.0-0.7) K/uL Baso # (Auto) 0.1 (0.0-0.1) K/uL Nucleated RBC % 0.0 /100WBC Nucleated RBCs # 0 K/uL Sodium (136-145) mmol/L Potassium (3.5-5.1) mmol/L Chloride (98-107) mmol/L Carbon Dioxide (21.0-32.0) mmol/L BUN (7.0-18.0) mg/dL Creatinine (0.6-1.0) mg/dL Est Cr Clr Drug Dosing mL/min Estimated GFR (MDRD) ml/min Glucose (74-106) mg/dL Calcium (8.5-10.1) mg/dL Total Bilirubin (0.2-1.0) mg/dL AST (15-37) IU/L ALT (14-63) IU/L Alkaline Phosphatase (46-116) U/L Total Protein (6.4-8.2) g/dL Albumin (3.4-5.0) g/dL Globulin (2.6-4.0) g/dL Albumin/Globulin Ratio (0.9-1.6) Urine Color YELLOW Urine Appearance CLEAR Urine pH 6.0 (5.0-8.0) Ur Specific [place] >= 1.030 (1.001-1.035) Urine Protein TRACE H (NEGATIVE) mg/dL Urine Glucose (UA) NEGATIVE (NEGATIVE) mg/dL Urine Ketones >=80 (NEGATIVE) mg/dL Urine Occult Blood NEGATIVE (NEGATIVE) Urine Nitrite NEGATIVE (NEGATIVE) Urine Bilirubin MODERATE H (NEGATIVE) Urine Urobilinogen 1.0 (<2.0) EU/dL Ur Leukocyte Esterase NEGATIVE (NEGATIVE) Urine RBC 0-1 (0-2/HPF) Urine WBC 1-2 (0-5/HPF) Ur Epithelial Cells MODERATE (NONE-FEW) Urine Bacteria FEW (NEGATIVE) Urine Mucus LIGHT (NONE-MOD) Urine HCG, Qual NEGATIVE (NEGATIVE) 05/25/19 Range/Units 08:16 WBC (4.0-11.0) K/uL RBC (4.30-5.90) M/uL Hgb (12.0-16.0) g/dL Hct (36.0-46.0) % MCV (80.0-98.0) fL MCH (27.0-32.0) pg MCHC (31.0-37.0) g/dL RDW Std Deviation (28.0-62.0) fl RDW Coeff of Brandie (11.0-15.0) % Plt Count (150-400) K/uL MPV (7.40-12.00) fL Neut % (Auto) (48.0-80.0) % Lymph % (Auto) (16.0-40.0) % Colbert % (Auto) (0.0-15.0) % Eos % (Auto) (0.0-7.0) % Baso % (Auto) (0.0-1.5) % Neut # (Auto) (1.4-5.7) K/uL Lymph # (Auto) (0.6-2.4) K/uL Colbert # (Auto) (0.0-0.8) K/uL Eos # (Auto) (0.0-0.7) K/uL Baso # (Auto) (0.0-0.1) K/uL Nucleated RBC % /100WBC Nucleated RBCs # K/uL Sodium 142 (136-145) mmol/L Potassium 3.3 L (3.5-5.1) mmol/L Chloride 104 (98-107) mmol/L Carbon Dioxide 23.4 (21.0-32.0) mmol/L BUN 7 (7.0-18.0) mg/dL Creatinine 0.8 (0.6-1.0) mg/dL Est Cr Clr Drug Dosing 90.00 mL/min Estimated GFR (MDRD) > 60.0 ml/min Glucose 87 (74-106) mg/dL Calcium 9.8 (8.5-10.1) mg/dL Total Bilirubin 1.1 H (0.2-1.0) mg/dL AST 27 (15-37) IU/L ALT 59 (14-63) IU/L Alkaline Phosphatase 90 (46-116) U/L Total Protein 7.7 (6.4-8.2) g/dL Albumin 3.8 (3.4-5.0) g/dL Globulin 3.9 (2.6-4.0) g/dL Albumin/Globulin Ratio 1.0 (0.9-1.6) Urine Color Urine Appearance Urine pH (5.0-8.0) Ur Specific [place] (1.001-1.035) Urine Protein (NEGATIVE) mg/dL Urine Glucose (UA) (NEGATIVE) mg/dL Urine Ketones (NEGATIVE) mg/dL Urine Occult Blood (NEGATIVE) Urine Nitrite (NEGATIVE) Urine Bilirubin (NEGATIVE) Urine Urobilinogen (<2.0) EU/dL Ur Leukocyte Esterase (NEGATIVE) Urine RBC (0-2/HPF) Urine WBC (0-5/HPF) Ur Epithelial Cells (NONE-FEW) Urine Bacteria (NEGATIVE) Urine Mucus (NONE-MOD) Urine HCG, Qual (NEGATIVE) Meds: Medications Discontinued Medications Generic Name Dose Route Start Last Admin Trade Name Denny PRN Reason Stop Dose Admin Sodium Chloride 1,000 mls @ 999 mls/hr 05/25/19 08:07 05/25/19 08:16 Normal Saline IV 05/25/19 09:07 999 mls/hr STAT ONE Administration Sodium Chloride 1,000 mls @ 999 mls/hr 05/25/19 08:59 05/25/19 09:06 Normal Saline IV 05/25/19 09:59 999 mls/hr STAT ONE Administration Ondansetron HCl 4 mg 05/25/19 08:07 05/25/19 08:17 Zofran IVPUSH 05/25/19 08:08 4 mg ONETIME ONE Administration Departure - Departure Time of Disposition: 08:55 Disposition: Home, Self-Care 01 Clinical Impression: Nausea and vomiting - Discharge Information Prescriptions: Ondansetron [Zofran ODT] 4 mg PO Q6H PRN #10 tab.dis PRN Reason: Nausea Instructions: Nausea and Vomiting, Adult, [id number] Referrals: PCP,Unknown [Primary Care Provider] - Forms: ED Department Discharge Additional Instructions: The following information is given to patients seen in the emergency department who are being discharged to home. This information is to outline your options for follow-up care. We provide all patients seen in our emergency department with a follow-up referral. The need for follow-up, as well as the timing and circumstances, are variable depending upon the specifics of your emergency department visit. If you don't have a primary care physician on staff, we will provide you with a referral. We always advise you to contact your personal physician following an emergency department visit to inform them of the circumstance of the visit and for follow-up with them and/or the need for any referrals to a consulting specialist. The emergency department will also refer you to a specialist when appropriate. This referral assures that you have the opportunity for follow-up care with a specialist. All of these measure are taken in an effort to provide you with optimal care, which includes your follow-up. Under all circumstances we always encourage you to contact your private physician who remains a resource for coordinating your care. When calling for follow-up care, please make the office aware that this follow-up is from your recent emergency room visit. If for any reason you are refused follow-up, please contact the [facility] Emergency Department at and asked to speak to the emergency department charge nurse. [facility] [address] [place] [id number] [address] 1. Continue with your dietary routine and try for small frequent sips of fluids to prevent dehydration. Use the zofran as needed. 2. Follow up with the specialist tomorrow as you already have arranged. 3. Return to the ED as needed and as discussed. - My Orders Last 24 Hours: My Active Orders 05/25/19 08:59 Orthostatic Vital Signs [RC] ASDIRECTED - Assessment/Plan Last 24 Hours: My Active Orders 05/25/19 08:59 Orthostatic Vital Signs [RC] ASDIRECTED
[2019-05-25 08:49] LABS: CHLORIDE,CL 104 mmol/L (98-107); SODIUM,NA 142 mmol/L (136-145)
[2019-05-25 11:31] VITALS: BP 120/66
== END 2019-05-25 09:56 | disposition home or self-care (01) ==
LOC: MW.ED 08:04
DX: R11.2 Nausea with vomiting, unspecified (principal); Z98.890 Other specified postprocedural states; Z91.030 Bee allergy status
CPT/HCPCS: 36415; 80053; 81001; 81025; 85025; 96361; 96374; 99284; J2405; J7040; 99283